=== PATIENT | male | born 1940 | race Caucasian/White ===

== ENCOUNTER 2023-01-04 08:59 | Outpatient (CLI) | payer OTHER, SELFPAY ==
[2023-01-04 13:54] LABS: Chloride* 109 mmol/L (96-114); Potassium* 4.2 mmol/L (3.6-5.1); Sodium* 140 mmol/L (135-149)
[2023-01-04 13:56] LABS: Carbon Dioxide* 25 mmol/L (20-32); Cholesterol* 129 mg/dL (90-199); Estimated Glomerular Filt Rate 76 ml/min
[2023-01-04 13:57] LABS: Blood Urea Nitrogen* 17 mg/dL (7-30); Glucose* 102 mg/dL (60-115); HDL Cholesterol* 48 mg/dL (>=40); LDL Cholesterol Calculated 63 mg/dL (<100); Triglycerides* 88 mg/dL (40-149)
== END 2023-01-04 09:00 | disposition home or self-care (01) ==
PROVIDERS: PCP Family Medicine; Visit Provider Family Medicine
DX: Z00.00 Encounter for general adult medical examination without abnormal findings (principal); D64.9 Anemia, unspecified; E78.5 Hyperlipidemia, unspecified; I10 Essential (primary) hypertension
CPT/HCPCS: 80048; 80061; 84153

== ENCOUNTER 2023-01-06 08:39 | Outpatient (CLI) | payer OTHER, SELFPAY ==
[2023-01-06 09:55] LABS: PSA Screen* 0.72 ng/mL (0.10-4.00)
== END 2023-01-06 08:40 | disposition home or self-care (01) ==
LOC: LKVREF 08:40
PROVIDERS: PCP Family Medicine; Visit Provider Family Medicine
DX: Z12.5 Encounter for screening for malignant neoplasm of prostate (principal)
CPT/HCPCS: 84153

== ENCOUNTER 2024-02-25 08:34 | Outpatient (CLI) | payer OTHER, SELFPAY | END 2024-02-25 08:35 | disposition home or self-care (01) | LOC: NFLDREF 13:27 | PROVIDERS: PCP Family Medicine; Referring Provider Family Medicine; Visit Provider Family Medicine | DX: E78.5 Hyperlipidemia, unspecified (principal); I10 Essential (primary) hypertension; Z12.5 Encounter for screening for malignant neoplasm of prostate | CPT/HCPCS: 80053; 80061; G0103 ==

== ENCOUNTER 2024-06-01 09:35 | Emergency (ER) | payer OTHER, SELFPAY ==
[2024-06-01 09:38] VITALS: BP 172/80; PULSE 79; RESP 18; TEMP 36.2; O2SAT 97; BMI 28.0
--- NOTE | 2024-06-01 09:40 | ED_ITS ---
HPI - Skin/Abscess/Foreign Bdy General Time Seen by Provider: 09:41 Date Seen: 06/01/24 Chief complaint: Skin/Abscess/Foreign Body Stated complaint: LT wrist swelling red rashy Time Seen by Provider: 06/01/24 09:40 Source: patient and RN notes reviewed Mode of arrival: ambulatory Limitations: no limitations History of Present Illness HPI narrative: This 83-year-old male is ambulatory into the ER with concern of swelling and itching in his hand and arm on the left side. He was walking on the trail when he felt a stinging itching sensation on the medial aspect on the dorsum of his hand. It has been itchy and itching him through the night. His hand and fingers swelled, his wrist swelled and the swelling is going up the left arm. He has tried some ice, states it did not help but maybe has not done it consistently enough. He has no shortness of breath. He does take aspirin daily. This is developed overnight, there is not pain, feels itchy. He has no history of bug bite reactions to this nature. He does not feel sick, has had no fevers or chills. Related Data Previous Rx's ?Medication ?Instructions ?Recorded atorvastatin 20 mg tablet 20 mg PO QDAY #90 tabs 02/29/24 lisinopril 5 mg tablet 5 mg PO QDAY #90 tabs 02/29/24 metoprolol succinate 50 mg 50 mg PO QDAY #90 tabs 02/29/24 tablet,extended release 24 hr Allergies Allergy/AdvReac Type Severity Reaction Status Date / Time No Known Drug Allergies Allergy Verified 03/15/24 12:10 Review of Systems Narrative: As per HPI. [facility] PFS Medical History Encounter for routine history and physical examination of adult ?Z00.00 - Encounter for general adult medical examination without abnormal findings (ICD-10) Encounter for annual wellness exam in Medicare patient ?Z00.00 - Encounter for general adult medical examination without abnormal findings (ICD-10) Surgical History History of cataract extraction ?Z98.49 - Cataract extraction status, unspecified eye (ICD-10) Family History Mother Parkinsonism Social History Narrative: Former smoker-Quit 20-30 years ago Smoking Status: Former smoker (Quit over 25 years ago ) Little interest or pleasure in doing things: not at all Feeling down, depressed, or hopeless: not at all Exam Const: Vital Signs, click to edit/add: Vital Signs - 24 hr 06/01/24 09:38 Temperature 97.1 F L Pulse Rate [Right Pulse Oximeter] 79 Respiratory Rate 18 Blood Pressure [Ri ght Upper Arm] 172/80 H Pulse Oximetry 97 Oxygen Delivery Me thod Room Air This 83-year-old male is alert, interactive, no apparent distress, face atraumatic, sclera clear, conjugate gaze. Speaking in complete sentences. Lungs are clear come good air entry, no wheezing crackles, no tachypnea. CV regular rate and rhythm, no murmur, normal S1-S2, no S3-S4. He notably has swelling that is quite significant on the dorsum of his left hand and does encompass all of his fingers. He has a little bit of traumatic ecchymosis along the dorsum of the hand where he states he was itching a lot last night. The skin has a little raise nature, small bumps, almost like a little vesicular type reaction. There is mild warmth but no significant erythema. Swelling goes up into the wrist and circumferentially into the forearm but stops below the elbow. There is a mildly pinkish change in some of the forearm skin but no significant warmth, no vesicles. He still has full range of motion in no limitation of joints in the left side. This really seems to be consistent with a localized bug bite reaction. It is highly doubtful that he would have suddenly developed a DVT given the history of this starting with a probable stinging insect bite while walking on a trail yesterday. There does not seem to be stigmata of cellulitis at this point, did discuss this with patient. We will start with prednisone. This will be provided from [employer] due to holiday. I do not see how any labs are going to change my a approach at this time. Documenting provider has reviewed patient's vital signs: yes Course Vital Signs Vital signs: Initial Vital Signs Temperature 97.1 F L 06/01/24 09:38 Temperature Source Temporal Artery Scan 06/01/24 09:38 Pulse Rate 79 06/01/24 09:38 Respiratory Rate 18 06/01/24 09:38 Blood Pressure 172/80 H 06/01/24 09:38 Blood Pressure Mean 110 H 06/01/24 09:38 Blood Pressure Position Sitting 06/01/24 09:38 Pulse Oximetry 97 06/01/24 09:38 Oxygen Delivery Method Room Air 06/01/24 09:38 Vital Signs Temperature 97.1 F L 06/01/24 09:38 Pulse Rate 79 06/01/24 09:38 Respiratory Rate 18 06/01/24 09:38 Blood Pressure 172/80 H 06/01/24 09:38 Pulse Oximetry 97 06/01/24 09:38 Oxygen Delivery Method Room Air 06/01/24 09:38 Temperature 97.1 F L 06/01/24 09:38 Pulse Rate 79 06/01/24 09:38 Respiratory Rate 18 06/01/24 09:38 Blood Pressure 172/80 H 06/01/24 09:38 Pulse Oximetry 97 06/01/24 09:38 Oxygen Delivery Method Room Air 06/01/24 09:38 Discharge Plan Discharge Clinical Impression: Bug bite without infection Patient Disposition: Home, Self-Care Condition: Stable Instructions: Insect Bite or Sting (ED) Additional Instructions: Start prednisone and take with food to protect your stomach. Do recommend elevating this arm and using ice packs to help decrease swelling, do this as much as possible for the next 24-48 hours. You can also try daily Claritin or Zyrtec to help with itching, this may also help in preventing further swelling. If you do develop fevers, have progressive swelling despite outlined treatment measures or have further concerns, please seek re-evaluation. Activity Level: Activity as Tolerated Prescriptions: No Action atorvastatin 20 mg tablet 20 mg PO QDAY Qty: 90 4RF lisinopril 5 mg tablet 5 mg PO QDAY Qty: 90 4RF metoprolol succinate 50 mg tablet extended release 24 hr 50 mg PO QDAY Qty: 90 4RF Follow Up/Referrals: Georges Haddad MD [Primary Care Provider] - Stand Alone Forms: [facility] Info Instructions
--- OUTSIDE RECORDS SUMMARY | 2024-06-01 09:57 | XMS_ITS | Clinical Summary ---
Author Organization [facility] Address [place], [place] [address] Care Team Providers Care Strip Tank Tender Name Role Phone Georges Haddad MD Primary Care Provider [phone] Allergies No known active allergies Medications Medication Sig Dispensed Refills Start Date End Date Status aspirin chewable 81 mg chewable tabletIndications:NSTEM I (non-ST elevated myocardial infarction) (HC) Take 1 tablet by mouth once daily with a meal. 0 09/01/2017 Active atorvastatin (LIPITOR) 20 mg tabletIndications:NSTEM I (non-ST elevated myocardial infarction) (HC),Hyperlipidemia, unspecified hyperlipidemia type Take 1 tablet by mouth at bedtime. 90 tablet 3 12/24/2017 Active metoprolol succinate (TOPROL XL) 50 mg sustained-release tabletIndications:NSTEM I (non-ST elevated myocardial infarction) (HC) Take 1 tablet by mouth once daily. 90 tablet 3 06/24/2018 Active nitroglycerin (NITROSTAT) 0.4 mg sublingual tabletIndications:NSTEM I (non-ST elevated myocardial infarction) (HC) Place 1 tablet under the tongue every 5 minutes if needed for Chest Pain (first choice for chest pain). 1 Bottle 3 06/24/2018 Active lisinopril (PRINIVIL; ZESTRIL) 5 mg tabletIndications:NSTEM I (non-ST elevated myocardial infarction) (HC) Take 1 tablet by mouth once daily. 90 tablet 3 06/24/2018 Active traMADoL (ULTRAM) 50 mg tabletIndications:Bladd er mass Take 1 Tablet (50 mg) by mouth every 6 hours if needed for Pain. 8 tablet. 01/30/2022 Active Active Problems Problem Noted Date Diagnosed Date Morbid obesity due to excess calories 10/16/2022 Mixed hyperlipidemia 10/16/2022 CAD (coronary artery disease) 09/01/2017 Overview: - 09/01/17 Angio: The LMCA is free of significant disease. The LAD has mild luminal irregularities. 40% stenosis in the Mid Circumflex. 99% stenosis in the 1st Marginal. The RCA is mild to moderately diseased. s/p JOSE to 1st marginal NSTEMI (non-ST elevated myocardial infarction) 1 HTN (hypertension) 08/31/2017 Coronary artery disease Immunizations Name Administration Dates Next Due COVID-19 vaccine ([employer] 30mcg/0.3mL) [facility]ORTO 11/17/2021,01/29/2021,01/08/2021 Family History Medical History Relation Name Comments Parkinsonism Mother Relation Name Status Comments Mother Social History Tobacco Use Types Packs/Day Years Used Date Smoking Tobacco: Former Cigarettes 4 30 Smokeless Tobacco: Never Comments:quit smoking 23 yea rs ago Alcohol Use Standard Drinks/Week Comments Yes 0 (1 standard drink = 0.6 oz pur e alcohol) 1-2/week Social Connections Answer Date Recorded Frequency of Communication with Friends and Fami ly Not on file 11/29/2021 Financial Resource Strain Answer Date R ecorded Difficulty of Paying Living Expenses Not on file 11/29/2021 Difficulty of Paying Living Expenses Not on file 11/29/2021 Sex and Gender Information Value Date Recorded Sex Assigned at Not on file Gender Identity Not on file Sexual Orientation Not on file Obstetrics History Last Filed Vital Signs Vital Sign Reading Time Taken Comments Blood Pressure 148/73 01/30/2022 5:30 PM [employer]END[employer] Pulse 86 01/30/2022 5:30 PM [employer] Temperature 37.1 ??C (98.7 ??F) 01/30/2022 5:30 PM CS T Respiratory Rate 18 01/30/2022 5:30 PM [employer] Oxygen Saturation 96% 01/30/2022 5:30 PM [employer]END[employer] Inhaled Oxygen Concentration - - Weight 94 kg (207 lb 3.2 oz) 01/30/2022 1:43 PM [employer] Height 175.3 cm (5' 9) 01/29/2022 2:45 PM [employer] Body Mass Index 30.6 01/29/2022 2:45 PM [employer] Plan of Treatment Health Maintenance Due Date Last Done Comments Tdap 1952 Depression screening for age 12+ 1953 Tetanus booster 1961 Zoster (shingles) series for age 50+ (1 of 2) 1991 Medicare Wellness for age 65+ 2006 Pneumococcal series for age 65+ (1 of 1 - PCV) 2006 BMI (ht and wt on same day) for age 18+ 08/31/2018 08/31/2017 COVID-19 vaccine series ( season) 2023 11/17/2021, 01/29/2021, 01/08/2021 Influenza for age 65+ 07/30/2024 Advance Directives * Full Code (Latest Code Status on File) Date Activated Date Inactivated Comments 01/30/2022 1:27 PM 01/30/2022 7:47 PM Question Answer Comments Code Status Discussion: Unable to Assess Preferences, Provider to review later * DNR Date Activated Date Inactivated Comments 09/01/2017 3:29 PM 09/02/2017 2:38 PM Question Answer Comments Code Status Discussion: Discussed * Full Code Date Activated Date Inactivated Comments 08/31/2017 4:20 PM 09/01/2017 3:29 PM * DNR Date Activated Date Inactivated Comments 08/31/2017 3:24 PM 08/31/2017 4:20 PM Question Answer Comments Code Status Discussion: Discussed Care Teams Strip Tank Tender Relationship Specialty Start Date End Date Georges Haddad MD [id number], [place] [address] PCP - General Family Practice 11/23/17
--- OUTSIDE RECORDS SUMMARY | 2024-06-01 09:57 | XMS_ITS | Data Portability ---
Author Organization [place] [facility], [facility] Address [address] [place] [address] Assessment No assessment recorded. Plan of Treatment Reminders Order Date Submit Date Provider Last Modified By Organization Details Last Modified Time Details Appointments None recorded. Lab urinalysis , dipstick 2022 023 [facility], [address], [place], [address], 3 14:10:43 urinalysis , dipstick 2022 023 [facility], [address], [place], [address], 3 08:47:23 urinalysis , dipstick 2023 024 [facility], [address], [place], [address], 4 11:53:04 Referral None recorded. Procedures None recorded. Surgeries None recorded. Imaging None recorded. Medication Orders None recorded. Patient TargetsNo targets recorded. Patient Instructions Encounter Date Encounter Id Patient Instructions Last Modified By Organization Details Last Modified Time 02/12/2022 [id number] 1. Bladder cancer. New diagnosis. 01/2022. 2.5 cm, G1T1. MMC given 2. Options discussed 3. 3 month f/u cysto in clinic Not available 02/12/2022 12:48:20 06/15/2022 [id number] 1. Bladder cancer. New diagnosis. 01/2022. 2.5 cm, G1T1. MMC given 2. Cysto - ELLE 3. 6 month cysto. Not available 06/15/2022 14:34:11 12/17/2022 [id number] 1. Bladder cancer. 01/2022. 2.5 cm, G1T1. MMC given 2. Cysto - [place] 3. 6 month cysto. Not available 12/17/2022 12:03:31 06/10/2023 [id number] 1. Bladder cancer. 01/2022. 2.5 cm, G1T1. MMC given 2. Cysto - ELLE. Watch RIGHT anterior area. 3. 6 month cysto. Not available 06/10/2023 15:39:34 02/24/2024 [id number] 1. Bladder cancer. 01/2022. 2.5 cm, G1T1. MMC given 2. Cysto - ELLE. 3. 6 month f/u cysto Not available 02/24/2024 11:56:35 Reason for Referral None Reported. Results Created Date Observation Date Name Description Value Unit Range Abnormal Flag LastModifiedBy Organization Detail LastModifiedTime 01/26/20 22 01/26/2022 UA WITHO UT MICRO COON RAPID S color-status Yellow yellow Not Available [facility] [address] [facility] [address] [address], [place], [address], 01/26/2022 16:38:32 01/26/20 22 01/26/2022 UA WITHO UT MICRO COON RAPID S clarity-stat us Clear clear Not Available [facility] [address] [facility] [address], [place], [address], 01/26/2022 16:38:32 01/26/20 22 01/26/2022 UA WITHO UT MICRO COON RAPID S glucose-stat us Negati ve mg/dL negati ve Not Available [facility] [address] [facility] [address], [place], [address], 01/26/2022 16:38:32 01/26/20 22 01/26/2022 UA WITHO UT MICRO COON RAPID S bilirubin-ur ine Negati ve negati ve Not Available [facility] [address] [facility] [address], [place], [address], 01/26/2022 16:38:32 01/26/20 22 01/26/2022 UA WITHO UT MICRO COON RAPID S ketones-stat us Negati ve mg/dL negati ve Not Available [facility] [address] [facility] [address], [place], [address], 01/26/2022 16:38:32 01/26/20 22 01/26/2022 UA WITHO UT MICRO COON RAPID S SG-status 1.010 1.00-1 .03 Not Available [facility] [address] [facility] [address], [place], [address], 01/26/2022 16:38:32 01/26/20 22 01/26/2022 UA WITHO UT MICRO COON RAPID S pH-status 5.0 5.00-8 .00 Not Available [facility] [address] [facility] [address], [place], [address], 01/26/2022 16:38:32 01/26/20 22 01/26/2022 UA WITHO UT MICRO COON RAPID S protein-stat us Negati ve mg/dL negati ve Not Available [facility] [address] [facility] [address], [place], [address], 01/26/2022 16:38:32 01/26/20 22 01/26/2022 UA WITHO UT MICRO COON RAPID S urobilinogen -status 0.2 E.U./d L E.U./ dL 0.2 E.U./d L Not Available [facility] [address] [facility] [address], [place], [address], 01/26/2022 16:38:32 01/26/20 22 01/26/2022 UA WITHO UT MICRO COON RAPID S nitrites-sta tus Negati ve negati ve Not Available [facility] [address] [facility] [address], [place], [address], 01/26/2022 16:38:32 01/26/20 22 01/26/2022 UA WITHO UT MICRO COON RAPID S blood-urine Negati ve negati ve Not Available [facility] [address] [facility] [address], [place], [address], 01/26/2022 16:38:32 01/26/20 22 01/26/2022 UA WITHO UT MICRO COON RAPID S leuko-status Negati ve negati ve Not Available [facility] [address] [place] [address] [address], [place], [address], 01/26/2022 16:38:32 01/26/20 22 01/26/2022 UA WITHO UT MICRO COON RAPID S specimen type Voided Not Available [facility] [address] [place] [address] [address], [place], [address], 01/26/2022 16:38:32 01/26/20 22 01/26/2022 UA WITHO UT MICRO COON RAPID S performed by Yolanda Rios Not Available [facility] [address] [facility] [address], [place], [address], 01/26/2022 16:38:32 01/26/20 22 01/26/2022 UA WITHO UT MICRO COON RAPID S total urine volume (mL) 45 /mL Not Available [facility] [address] [facility] [address], [place], [address], 01/26/2022 16:38:32 12/17/19 23 12/17/2022 UA WITHO UT MICRO PLYMO UTH color-status YELLOW yellow Not Available [facility] [address] [facility] [address], [place], [address], 12/17/2022 14:10:43 12/17/19 23 12/17/2022 UA WITHO UT MICRO PLYMO UTH clarity-stat us CLEAR clear Not Available [facility] [address] [facility] [address], [place], [address], 12/17/2022 14:10:43 12/17/19 23 12/17/2022 UA WITHO UT MICRO PLYMO UTH glucose-stat us NEGATI VE mg/dL negati ve Not Available [facility] [address] [facility] [address], [place], [address], 12/17/2022 14:10:43 12/17/19 23 12/17/2022 UA WITHO UT MICRO PLYMO UTH bilirubin-ur ine NEGATI VE negati ve Not Available [facility] [address] [facility] [address], [place], [address], 12/17/2022 14:10:43 12/17/19 23 12/17/2022 UA WITHO UT MICRO PLYMO UTH ketones-stat us NEGATI VE mg/dL negati ve Not Available [facility] [address] [facility] [address], [place], [address], 12/17/2022 14:10:43 12/17/19 23 12/17/2022 UA WITHO UT MICRO PLYMO UTH SG-status 1.025 1.00-1 .03 Not Available [facility] [address] [facility] [address], [place], [address], 12/17/2022 14:10:43 12/17/19 23 12/17/2022 UA WITHO UT MICRO PLYMO UTH pH-status 5.0 5.00-8 .00 Not Available [facility] [address] [facility] [address], [place], [address], 12/17/2022 14:10:43 12/17/19 23 12/17/2022 UA WITHO UT MICRO PLYMO UTH protein-stat us NEGATI VE mg/dL negati ve Not Available [facility] [address] [facility] [address], [place], [address], 12/17/2022 14:10:43 12/17/19 23 12/17/2022 UA WITHO UT MICRO PLYMO UTH urobilinogen -status 0.2 E.U./D L E.U./ dL 0.2 E.U./d L Not Available [facility] [address] [facility] [address], [place], [address], 12/17/2022 14:10:43 12/17/19 23 12/17/2022 UA WITHO UT MICRO PLYMO UTH nitrites-sta tus NEGATI VE negati ve Not Available [facility] [address] [place] [address], [place], [address], 12/17/2022 14:10:43 12/17/19 23 12/17/2022 UA WITHO UT MICRO PLYMO UTH blood-urine NEGATI VE negati ve Not Available [facility] [address] [place] [address], [place], [address], 12/17/2022 14:10:43 12/17/19 23 12/17/2022 UA WITHO UT MICRO PLYMO UTH leuko-status NEGATI VE negati ve Not Available [facility] [address] [place] [address] [address], [place], [address], 12/17/2022 14:10:43 12/17/19 23 12/17/2022 UA WITHO UT MICRO PLYMO UTH specimen type VOIDED Not Available [facility] [address] [place] [address], [place], [address], 12/17/2022 14:10:43 12/17/19 23 12/17/2022 UA WITHO UT MICRO PLYMO UTH performed by ARUN Rios Not Available [facility] [address] [place] [address], [place], [address], 12/17/2022 14:10:43 12/17/19 23 12/17/2022 UA WITHO UT MICRO PLYMO UTH total urine volume (mL) 30 /mL Not Available [facility] [address] [facility] [address], [place], [address], 12/17/2022 14:10:43 06/10/2006/10/2023 UA WITHO UT MICRO PLYMO UTH color-status YELLOW yellow Not Available [facility] [address] [facility] [address], [place], [address], 06/11/2023 08:47:23 06/10/2006/10/2023 UA WITHO UT MICRO PLYMO UTH clarity-stat us CLEAR clear Not Available [facility] [address] [place] [address], [place], [address], 06/11/2023 08:47:23 06/10/20 23 06/10/2023 UA WITHO UT MICRO PLYMO UTH glucose-stat us NEGATI VE mg/dL negati ve Not Available [facility] [address] [place] [address], [place], [address], 06/11/2023 08:47:23 06/10/20 23 06/10/2023 UA WITHO UT MICRO PLYMO UTH bilirubin-ur ine NEGATI VE negati ve Not Available [facility] [address] [facility] [address], [place], [address], 06/11/2023 08:47:23 06/10/2006/10/2023 UA WITHO UT MICRO PLYMO UTH ketones-stat us NEGATI VE mg/dL negati ve Not Available [facility] [address] [place] [address], [place], [address], 06/11/2023 08:47:23 06/10/2006/10/2023 UA WITHO UT MICRO PLYMO UTH SG-status 1.025 1.00-1 .03 Not Available [facility] [address] [place] [address], [place], [address], 06/11/2023 08:47:23 06/10/20 23 06/10/2023 UA WITHO UT MICRO PLYMO UTH pH-status 5.0 5.00-8 .00 Not Available [facility] [address] [facility] [address], [place], [address], 06/11/2023 08:47:23 06/10/20 23 06/10/2023 UA WITHO UT MICRO PLYMO UTH protein-stat us NEGATI VE mg/dL negati ve Not Available [facility] [address] [facility] [address], [place], [address], 06/11/2023 08:47:23 06/10/20 23 06/10/2023 UA WITHO UT MICRO PLYMO UTH urobilinogen -status 0.2 E.U./D L E.U./ dL 0.2 E.U./d L Not Available [facility] [address] [facility] [address], [place], [address], 06/11/2023 08:47:23 06/10/20 23 06/10/2023 UA WITHO UT MICRO PLYMO UTH nitrites-sta tus NEGATI VE negati ve Not Available [facility] [address] [facility] [address], [place], [address], 06/11/2023 08:47:23 06/10/20 23 06/10/2023 UA WITHO UT MICRO PLYMO UTH blood-urine NEGATI VE negati ve Not Available [facility] [address] [facility] [address], [place], [address], 06/11/2023 08:47:23 06/10/20 23 06/10/2023 UA WITHO UT MICRO PLYMO UTH leuko-status NEGATI VE negati ve Not Available [facility] [address] [facility] [address], [place], [address], 06/11/2023 08:47:23 06/10/20 23 06/10/2023 UA WITHO UT MICRO PLYMO UTH specimen type VOIDED Not Available [facility] [address] [facility] [address], [place], [address], 06/11/2023 08:47:23 06/10/20 23 06/10/2023 UA WITHO UT MICRO PLYMO UTH performed by ARUN Rios Not Available [facility] [address] [facility] [address], [place], [address], 06/11/2023 08:47:23 06/10/20 23 06/10/2023 UA WITHO UT MICRO PLYMO UTH total urine volume (mL) 30 /mL Not Available [facility] [address] [facility] [address], [place], [address], 06/11/2023 08:47:23 02/24/20 24 02/24/2024 UA WITHO UT MICRO PLYMO UTH color-status YELLOW yellow Not Available [facility] [address] [facility] [address], [place], [address], 02/24/2024 11:53:04 02/24/20 24 02/24/2024 UA WITHO UT MICRO PLYMO UTH clarity-stat us CLEAR clear Not Available [facility] [address] [facility] [address], [place], [address], 02/24/2024 11:53:04 02/24/20 24 02/24/2024 UA WITHO UT MICRO PLYMO UTH glucose-stat us NEGATI VE mg/dL negati ve Not Available [facility] [address] [facility] [address], [place], [address], 02/24/2024 11:53:04 02/24/20 24 02/24/2024 UA WITHO UT MICRO PLYMO UTH bilirubin-ur ine NEGATI VE negati ve Not Available [facility] [address] [facility] [address], [place], [address], 02/24/2024 11:53:04 02/24/20 24 02/24/2024 UA WITHO UT MICRO PLYMO UTH ketones-stat us NEGATI VE mg/dL negati ve Not Available [facility] [address] [facility] [address], [place], [address], 02/24/2024 11:53:04 02/24/20 24 02/24/2024 UA WITHO UT MICRO PLYMO UTH SG-status 1.020 1.00-1 .03 Not Available [facility] [address] [facility] [address], [place], [address], 02/24/2024 11:53:04 02/24/20 24 02/24/2024 UA WITHO UT MICRO PLYMO UTH pH-status 5.0 5.00-8 .00 Not Available [facility] [address] [facility] [address], [place], [address], 02/24/2024 11:53:04 02/24/20 24 02/24/2024 UA WITHO UT MICRO PLYMO UTH protein-stat us NEGATI VE mg/dL negati ve Not Available [facility] [address] [facility] [address], [place], [address], 02/24/2024 11:53:04 02/24/20 24 02/24/2024 UA WITHO UT MICRO PLYMO UTH urobilinogen -status 0.2 E.U./D L E.U./ dL 0.2 E.U./d L Not Available [facility] [address] [facility] [address], [place], [address], 02/24/2024 11:53:04 02/24/20 24 02/24/2024 UA WITHO UT MICRO PLYMO UTH nitrites-sta tus NEGATI VE negati ve Not Available [facility] [address] [facility] [address], [place], [address], 02/24/2024 11:53:04 02/24/20 24 02/24/2024 UA WITHO UT MICRO PLYMO UTH blood-urine NEGATI VE negati ve Not Available [facility] [address] [facility] [address], [place], [address], 02/24/2024 11:53:04 02/24/20 24 02/24/2024 UA WITHO UT MICRO PLYMO UTH leuko-status NEGATI VE negati ve Not Available [facility] [address] [facility] [address], [place], [address], 02/24/2024 11:53:04 02/24/20 24 02/24/2024 UA WITHO UT MICRO PLYMO UTH specimen type VOIDED Not Available [facility] [address] [place] [address], [place], [address], 02/24/2024 11:53:04 02/24/20 24 02/24/2024 UA WITHO UT MICRO PLYMO UTH performed by ARUN Rios Not Available [facility] [address] [facility] [address], [place], [address], 02/24/2024 11:53:04 02/24/20 24 02/24/2024 UA WITHO UT MICRO PLYMO UTH total urine volume (mL) 30 /mL Not Available [facility] [address] [facility] [address], [place], [address], 02/24/2024 11:53:04 01/26/[address], abdom en + pelvi s, w/wo contr ast No observ ation record ed. Not Available 01/26/2022 10:43:25 Result Notes None recorded. Problems Name Status Onset Date Resolution Date Notes Provider Name and Address Organization Details Recorded Time Osteoarthritis Active GENESIS Connelly - [facility] 01/26/2022 12:37:36 Tubular adenoma Active GENESIS Connelly - [facility] 01/26/2022 12:37:47 Acute coronary syndrome Active GENESIS Connelly - [facility] 01/26/2022 12:37:57 Coronary arteriosclerosis Active 022 Yolanda Osoriokavon valdes, [facility] 01/26/2022 12:38:37 Acute non-ST segment elevation myocardial infarction Active 022 Yolanda Osoriokavon valdes, [facility] 01/26/2022 12:39:10 Hypertensive disorder Active 022 Yolanda Osoriokavon valdes, [facility] 01/26/2022 12:39:17 Hyperlipidemia Active 022 Yolanda Osoriokavon valdes, [facility] 01/26/2022 12:39:24 Blood in urine Active 022 Yolanda Osoriokavon valdes, [facility] 01/26/2022 12:39:41 Malignant neoplasm of urinary bladder Active 023 Jasbir Tobias MD [address] [place] [address],[facility] [address], [place], [address] , [facility] 05/14/2023 13:42:08 Problem Notes None recorded. Procedures Surgical History Date Name Laterality Status Provider Name and Address Organization Details Recorded Time 02/24/20 24 Cystoscopy- male completed Jasbir Tobias MD [address] [place] [address],[address], [place], [address], [facility] 02/24/2024 11:56:24 02/24/20 24 Past Data Reviewed completed Jasbir Tobias MD [address] [place] [address],[address], [address], [facility] 01/08/2024 13:07:00 06/10/20 23 Cystoscopy- male completed Jasbir Tobias MD [address] [place] [address],[address], [place], [address], [facility] 05/14/2023 13:40:08 06/10/20 23 Past Data Reviewed completed Jasbir Tobias MD [address] [place] [address],[address], [address], [facility] 05/14/2023 13:40:08 12/17/19 23 Cystoscopy- male completed Jasbir Tobias MD [address] [place] [address],[facility] [address], [place], [address], [facility] 12/03/2022 17:51:03 12/17/19 23 Past Data Reviewed completed Jasbir Tobias MD [address] [facility],[address], [place], [address], [facility] 12/03/2022 17:51:03 06/15/20 22 Cystoscopy- male completed Jasbir Tobias MD [address] [facility],[address], [place], [address], [facility] 06/15/2022 14:34:36 06/15/20 22 Past Data Reviewed completed Jasbir Tobias MD [address] [place] [address],[address], [place], [address], [facility] 05/28/2022 07:08:04 02/13/20 22 Past Data Reviewed completed Jasbir Tobias MD [address] [place] [address],[address], [place], [address], [facility] 02/11/2022 15:29:33 01/31/20 22 TRANSURETHRAL RESECTION OF BLADDER TUMOR (SURG) completed Felicia valdes [facility] 02/11/2022 14:00:10 01/26/20 22 Cystoscopy- male completed Jasbir Tobias MD [address] [place] [address],[address], [place], [address], [facility] 01/26/2022 14:16:15 01/26/20 22 Past Data Reviewed completed Jasbir Tobias MD [address] [place] [address],[address], [place], [address], [facility] 01/25/2022 22:37:32 12/30/19 20 Diagnostic colonoscopy completed Not Available Health Note 02/10/2022 11:57:14 Cystoscopy completed Not Available Health Note 0 02/10/2022 11:57:14 Insert epicard eltrd open completed Not Available Health Note 02/10/2022 11:57:14 Cataract Surgery completed Arun valdes [facility] 12/17/2022 11:38:17 placement of stent in cardiac conduit completed Arun valdes [facility] 12/17/2022 11:38:59 Imaging Results Imaging Date Name Status LastModified by [facility] Details LastModified Time 01/26/2022 CT, abdomen + pelvis, w/wo contrast completed Information not available 01/26/2022 10:43:25 Procedure Notes None recorded. Medical Equipment None Reported. Allergies No known drug allergies Medications Name Sig Start Date Stop Date Status Note LastModified by Organization Details LastModified Time atorvastat in 20 mg tablet TAKE 1 TABLET BY MOUTH EVERY DAY active Not Available Not Available No t Available metoprolol succinate ER 50 mg tablet,ext ended release 24 hr TAKE 1 TABLET BY MOUTH EVERY DAY active Not Available Not Available No t Available ciprofloxa martita 250 mg tablet 02/12 completed Not Available Not Available Not Available sulfametho xazole 800 mg-trimeth oprim 160 mg tablet TAKE 1 TABLET BY MOUTH TWICE DAILY 02/12 completed Not Available Not Available Not Available tramadol 50 mg tablet active Not Available Not Available Not Available lisinopril 5 mg tablet TAKE 1 TABLET BY MOUTH EVERY DAY active Not Available Not Available No t Available lisinopril 10 mg-hydroch lorothiazi de 12.5 mg tablet 5mg 1/day 02/12 completed HN: Patient reports taking Not Available Not Available Not Available metoprolol succinate ER 50 mg capsule sprinkle, ext. release 24 hr 50mg 1/day 02/12 completed HN: Patient reports taking Not Available Not Available Not Available Vitals Date Recorded Body height Body mass index (BMI) Body weight Provider Name and Address Organization Details Last Updated DateTime 06/15/2022 177.8 cm 27.3 kg/m2 80320.55 g Yolanda Osorio [facility] 06/15/2022 14:10:54 Date Recorded Body height Body mass index (BMI) Body weight Provider Name and Address Organization Details Last Updated DateTime 12/17/2022 177.8 cm 27.3 kg/m2 04972.55 g Arun Garcia [facility] 12/17/2022 11:37:49 Date Recorded Body height Body mass index (BMI) Body weight Provider Name and Address Organization Details Last Updated DateTime 06/10/2023 177.8 cm 28 kg/m2 92512.6173 025081 g Not Available Health Note 06/10/2023 15:19:57 Date Recorded Body height Body mass index (BMI) Body weight Provider Name and Address Organization Details Last Updated DateTime 02/24/2024 177.8 cm 28 kg/m2 97521.51 g Arun Ortez [facility] 02/24/2024 11:42:29 Date Recorded Body height Body weight Body mass index (BMI) Provider Name and Address Organization Details Last Updated DateTime 02/12/2022 177.8 cm 26989.41791 55178 g 27.3 kg/m2 Not Available Health Note 02/12/2022 12:33:11 Social History Question Answer Notes LastModified by Organizat ion Details LastModified Time Tobacco Smoking Status Former Smoker Not Available Health Note 06/07/2023 11:16:22 What Is Your Level Of Alcohol Consumption? Occasional [email or web address] Information not available 06/07/2023 What Is Your Level Of Caffeine Consumption? Moderate [email or web address] Information not available 06/07/2023 How Much Tobacco Do You Chew? None [email or web address] Information not available 06/07/2023 Do You Or Have You Ever Used E-cigarettes Or Vape? Never Used Electronic Cigarettes [email or web address] Information not available 06/07/2023 When Did You Quit Smoking? 16+yearssincel kim Information not available 06/10/2023 What Was The Date Of Your Most Recent Tobacco Screening? 02/24/2024 Information not available 02/24/2024 What Is Your Relationship Status? [email or web address] Information not available 06/07/2023 Are You Sexually Active? No [email or web address] Information not available 06/07/2023 Do You Or Have You Ever Used Smokeless Tobacco? Never Used Smokeless Tobacco [email or web address] Information not available 06/07/2023 Do You Use Any Illicit Or Recreational Drugs? No [email or web address] Information not available 06/07/2023 Has Tobacco Cessation Counseling Been Provided? No Information not available 06/15/2022 How Many Years Have You Smoked Tobacco? 35 [email or web address] Information not available 06/07/2023 Do You Or Have You Ever Used Any Other Forms Of Tobacco Or Nicotine? No Information not available 01/26/2022 How Many Days In The Past Year Have You Consumed 5 Or More Drinks? 0 [email or web address] Information no t available 06/07/2023 Sex: Male Functional Status None recorded. Mental Status None recorded. Family History Relationship Description Onset Age of this Age Resolved Age Notes Father No current problems or disability Mother No current problems or disability Medical History Condition Response High Blood Pressure N Kidney Stones N Depression N Lung Disease N GERD/Acid Reflux N Sexually Transmitted Infection N Diabetes N Bleeding Disorder N Cancer Y High Cholesterol Y Heart Disease N Immunizations Vaccine Type Date Status Provider Name and Address Organization Details Recorded Time SARS-COV-2 (COVID-19) vaccine, UNSPECIFIED 10/29/2021 completed Not Available Health Note 01/24/2022 13:07:32 SARS-COV-2 (COVID-19) vaccine, UNSPECIFIED 11/18/2021 completed Not Available Health Note 02/10/2022 11:57:18 SARS-COV-2 (COVID-19) vaccine, UNSPECIFIED 01/29/2021 completed Not Available Health Note 06/07/2023 11:16:27 Past Encounters Encounter ID Performer Location Encounter Start Date Encounter Closed Date Diagnosis/Indication Diagnosis SNOMED-CT Code [id number] Jasbir Tobias MD [facility] [address] [address] 01/26/2022 13:48:16 01/26/2022 14:53:41 Bhavin hematuria [id number] Malignant neoplasm of urinary bladder [id number] Jasbir Tobias MD [address] [address] 02/12/2022 12:33:07 02/13/2022 09:11:07 Malignant neoplasm of urinary bladder [id number] Jasbir Tobias MD [facility] [address] [address] 06/15/2022 13:59:47 06/15/2022 14:37:43 Malignant neoplasm of urinary bladder [id number] Jasbir Tobias MD [address] [address] 12/17/2022 11:36:29 12/17/2022 12:07:26 Malignant neoplasm of urinary bladder [id number] Jasbir Tobias MD [facility] [address] [facility] [place] [address] 06/10/2023 15:19:14 06/10/2023 15:41:49 Malignant neoplasm of urinary bladder [id number] Jasbir Tobias MD [facility] [address] [facility],[address] [place] [address] 02/24/2024 11:38:47 02/24/2024 12:00:53 Malignant neoplasm of urinary bladder [id number] Health Concerns Section Related Observation LastModified by Organization Detai ls LastModified Time None Recorded Concern Status LastModified by Organization Details LastModified Time None Recorded Advance Directives Directive None Recorded Payers Encounter Date Sequence Insurance Name Policy Number Policy Andrade Covered Member ID Andrade Member ID Guarantor Name 02/12/2022 1 MEDICA - DOS ON OR AFTER 2020 - MEDICA GOVERNMENT PROGRAMS - ADVANTAGE SOLUTION (MEDICARE REPLACEMENT/A DVANTAGE - PPO) [id number] Heino Benthin [id number] Heino Benthin 02/12/2022 2 [place] [employer] Heino Benthin [id number] Heino Benthin 06/15/2022 1 MEDICA - DOS ON OR AFTER 2020 - MEDICA GOVERNMENT PROGRAMS - ADVANTAGE SOLUTION (MEDICARE REPLACEMENT/A DVANTAGE - PPO) [id number] Heino Benthin [id number] Heino Benthin 06/15/2022 2 [place] [employer] Heino Benthin [id number] Heino Benthin 12/17/2022 1 MEDICA - DOS ON OR AFTER 2020 - MEDICA GOVERNMENT PROGRAMS - ADVANTAGE SOLUTION (MEDICARE REPLACEMENT/A DVANTAGE - PPO) [id number] Heino Benthin [id number] Heino Benthin 12/17/2022 2 [place] [employer] Heino Benthin [id number] Heino Benthin 06/10/2023 1 MEDICA - DOS ON OR AFTER 2020 - MEDICA GOVERNMENT PROGRAMS - ADVANTAGE SOLUTION (MEDICARE REPLACEMENT/A DVANTAGE - PPO) [id number] Heino Benthin [id number] Abdifatah Benthin 06/10/2023 2 [place] [employer] Abdifatah Fountainn [id number] Abdifatah Benthin 02/24/2024 1 MEDICA - DOS ON OR AFTER 2020 - MEDICA GOVERNMENT PROGRAMS - ADVANTAGE SOLUTION (MEDICARE REPLACEMENT/A DVANTAGE - PPO) [id number] Abdifatah Lohin [id number] Abdifatah Benthin 02/24/2024 2 [place] [employer] [facility] Abdifatah Fountainn [id number] Abdifatah Pederson Notes Date Note Type Note Provider Name and Address Organization Details Recorded Time 02/12/2022 text/html HPI Notes: FTC for non-invasive papillary urothelial cancer, low-grade TURBT + mitomycin 01/30/22 Continence Function Questionnaire: [1] Urinary control: Total control [1] Leaked urine: Never Jasbir Tobias MD [address] [place] [address],[address], [address], [facility] 02/12/2022 13:05:22 06/15/2022 text/html HPI Notes: FTC for non-invasive papillary urothelial cancer, low-grade TURBT + mitomycin 01/30/22 Continence Function Questionnaire: [1] Urinary control: Total control [1] Leaked urine: Never Jasbir Tobias MD [address] [place] [address],[address], [address], [facility] 06/15/2022 14:34:45 12/17/2022 text/html HPI Notes: FTC for non-invasive papillary urothelial cancer, low-grade TURBT + mitomycin 01/30/22 Continence Function Questionnaire: [1] Urinary control: Total control [1] Leaked urine: Never Jasbir Tobias MD [address] [place] [address],[address], [address], [facility] 12/17/2022 12:03:55 06/10/2023 text/html HPI Notes: FTC for non-invasive papillary urothelial cancer, low-grade TURBT + mitomycin 01/30/22 Continence Function Questionnaire: [1] Urinary control: Total control [1] Leaked urine: Never Jasbir Tobias MD [address] [place] [address],[address] [place], [address], [facility] 06/10/2023 15:39:46 02/24/2024 text/html HPI Notes: FTC for non-invasive papillary urothelial cancer, low-grade TURBT + mitomycin 01/30/22 Continence Function Questionnaire: [1] Urinary control: Total control [1] Leaked urine: Never Jasbir Tobias MD [address] [place] [address],[facility] [address], [place], [address], [facility] 02/24/2024 11:57:02
== END 2024-06-01 10:04 | disposition home or self-care (01) ==
PROVIDERS: Emergency Provider Family Medicine; PCP Family Medicine
DX: S60.562A Insect bite (nonvenomous) of left hand, initial encounter (principal)
CPT/HCPCS: 99282; 99283

== ENCOUNTER 2025-04-12 12:11 | Outpatient (CLI) | payer OTHER, SELFPAY | END 2025-04-12 12:12 | disposition home or self-care (01) | LOC: LKVREF 12:12 | PROVIDERS: PCP Family Medicine; Visit Provider Family Medicine | DX: E78.5 Hyperlipidemia, unspecified (principal); S20.461A Insect bite (nonvenomous) of right back wall of thorax, initial encounter; Z12.5 Encounter for screening for malignant neoplasm of prostate | CPT/HCPCS: 80053; 80061; 86618; G0103 ==

== ENCOUNTER 2025-04-17 07:56 | Outpatient (CLI) | payer OTHER, SELFPAY ==
--- NOTE | 2025-04-17 08:15 | CRLHL7_ITS ---
For Patients: As a result of the Century Cures Act, medical imaging exams and procedure reports are released immediately into your electronic medical record. You may view this report before your referring provider. If you have questions, please contact your health care provider. Examination: US abdominal aorta Indication: Abdominal aortic aneurysm screening. Technique: Carlton scale and color Doppler images of the aorta and common iliac arteries are obtained. Comparison: None Findings: Proximal aorta: 2.7 x 2.6 cm Mid aorta: 1.6 x 1.8 cm Distal aorta: 2.6 x 2.8 cm Right common iliac artery: 1.6 x 1.3 cm Left common iliac artery: 1.8 x 1.8 cm Atherosclerotic changes. Ectatic distal aorta. Elevated velocity within the left common iliac artery measuring up to 309 cm/second. 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 Follow-up in 5 years recommended. 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 Dictated by Segun Romo MD @ 04/17/2025 10:21:24 AM (Electronically Signed)
== END 2025-04-17 07:57 | disposition home or self-care (01) ==
LOC: US 07:57
PROVIDERS: PCP Family Medicine; Visit Provider Family Medicine
DX: Z13.6 Encounter for screening for cardiovascular disorders (principal); I77.811 Abdominal aortic ectasia; I70.8 Atherosclerosis of other arteries; I25.10 Atherosclerotic heart disease of native coronary artery without angina pectoris
CPT/HCPCS: 76706

== ENCOUNTER 2025-07-23 13:38 | Outpatient (CLI) | payer OTHER, SELFPAY | END 2025-07-23 13:39 | disposition home or self-care (01) | LOC: US 13:39 | PROVIDERS: PCP Family Medicine; Visit Provider Family Medicine | DX: I77.1 Stricture of artery (principal); R20.0 Anesthesia of skin; M79.609 Pain in unspecified limb | CPT/HCPCS: 93922 ==